=== PATIENT | male | born 1945 | race Caucasian/White ===

== ENCOUNTER → 2021-05-21 | Outpatient (CLI) | payer OTHER, BC ==
[~2021-05-21] MED LIST: ADULT ASPIRIN R81 MG PO; ADULT LOW DOSE81 MG PO; BREO ELLIPTA 11 EACH INH; COUMADIN 4 MG TA4 M1 PO; CRESTOR20 MG PO; CYMBALTA60 MG PO; FISH OIL 1,0001 EAC9 PO; FISHOIL PO; HYDROCODON-ACE1 EAC7 PO; LIPITOR 40 MG T40 M1 PO; LISINOPRIL20 MG PO; LOSARTAN POTAS100 MG PO; MAGNESIUM400 MG PO; MULTIVITAMINS PO; NORCO 10-325 T1 EACH; OXYCONTIN; STOOL SOFTENER100 MG PO; VITAMIN B-121000 MC2 PO; VITAMIN D325 MC5 PO; VOLTAREN ARTHRI20 GM TOP; ZINC30 M1 PO
[2021-05-21 11:40] LABS: URINE BILIRUBIN NEGATIVE (Negative); URINE BLOOD NEGATIVE (Negative); URINE CLARITY CLEAR; URINE COLOR YELLOW; URINE GLUCOSE-RANDOM* NEGATIVE (Negative); URINE KETONES NEGATIVE (Negative); URINE LEUKOCYTES-REFLEX NEGATIVE (Negative); URINE NITRITE-REFLEX NEGATIVE (Negative); URINE PROTEIN (DIPSTICK) NEGATIVE (Negative); URINE SPECIFIC GRAVITY <= 1.005 (1.005-1.035); URINE UROBILINOGEN 0.2 E.U./dl (0.2-1.0)
[2021-05-21 11:47] LABS: HEMATOCRIT 46.7 % (42.0-52.0); HEMOGLOBIN 15.8 gm/dL (14.0-18.0); MCH 31.1 pg (26.0-34.0); MCHC 33.9 g/dL (28.0-37.0); MCV 91.8 fL (80.0-100.0); RBC 5.09 mil/uL (4.50-6.00); RDW 13.1 % (10.5-14.5)
[2021-05-21 11:52] LABS: CALCIUM 9.2 mg/dL (8.5-10.1); CREATININE 0.9 mg/dL (0.7-1.3); POTASSIUM 4.4 mmol/L (3.5-5.1)
[2021-05-21 11:54] LABS: INR 0.94; PROTIME 10.3 Seconds (10.5-12.1)
--- NOTE | 2021-05-22 08:23 | EKG ---
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 SAAB : 1945 Requested By: Lex Hall Order Number: [id number] MD: Jean Pierre Lu Measurements Intervals [place] Rate: 72 P: 10 ME: 242 QRS: -42 QRSD: 119 T: 56 QT: 400 QTc: 438 Interpretive Statements Sinus rhythm Prolonged ME interval Incomplete RBBB and LAFB Compared to ECG 09/15/2010 12:50:24 Left anterior fascicular block now present Incomplete right bundle-branch block now present Right bundle-branch block now present Poor R-wave progression no longer present Electronically Signed On 05-22-2021 7:02:02 CDT by Jean Pierre Lu [email or web address] <ELECTRONICALLY SIGNED> By: Jean Pierre Lu MD, [facility] 05/22/21 0702 [id number] Jean Pierre Lu MD, [facility] /EPI
== END ==
LOC: PAC 10:29
PROVIDERS: ATTEND Orthopaedic Surgery
DX: Z01.812 Encounter for preprocedural laboratory examination (principal); Z01.810 Encounter for preprocedural cardiovascular examination; M17.11 Unilateral primary osteoarthritis, right knee; I45.2 Bifascicular block

== ENCOUNTER 2021-06-04 12:17 | Observation (INO) | payer OTHER, BC ==
[~2021-06-04] VITALS: Ht 182.9 cm; Wt 104.3 kg
--- NOTE | ~2021-06-04 | O ---
[facility] [place] [address] OPERATIVE REPORT Name: GENO BOWSER Room #: 438-P [facility] M..#: [id number] Admission: 06/04/21 Attend Phys: Lex Hall MD Discharge: Date of : 45 Report #: [id number] THIS REPORT FOR: cc: Jesus Haynes Timothy C. DO Abraham, Scott M. MD ~ DOC #: [id number] Lex Hall MD DATE OF SERVICE: 06/04/2021 PREOPERATIVE DIAGNOSIS: Right knee osteoarthritis. POSTOPERATIVE DIAGNOSIS: Right knee osteoarthritis. PROCEDURE: Right total knee arthroplasty using Navio robotic assistance. SURGEON: Lex Hall MD. OPERATING ROOM TECH: Raina Olson PA-C. INDICATION FOR OPERATING ROOM TECH: Throughout the case, extensive retraction, manipulation of the knee was required. This is supported by my security assistant. ANESTHESIA: LMA with adductor canal block. IMPLANTS: [employer]hew size 6 cobalt chrome Journey II BCS femur, size 7 tibia, size 9 polyethylene, size 38 patella. TOURNIQUET TIME: 51 minutes. ESTIMATED BLOOD LOSS: 25 mL COMPLICATIONS: None. SPECIMENS: None. CONDITION UPON LEAVING THE OR: Stable. INDICATIONS FOR PROCEDURE: The patient is a 75-year-old gentleman with severe right knee osteoarthritis. He had failed conservative measures for this and after discussion with him, he elected for right total knee arthroplasty. DESCRIPTION OF PROCEDURE: Risks, benefits, alternatives, complications were discussed in detail with the patient including, but not limited to risk of anesthesia, risk of damage to nerves, arteries, blood vessels, risk for infection, bleeding, risk for continued knee pain and need for reoperation. [address] [address] OPERATIVE REPORT Name: GENO BOWSER Miriam Room #: 438-P [facility] Camilo Junior#: [id number] Admission: 06/04/21 Attend Phys: Lex Hall MD Discharge: Date of : 45 Report #: [id number] Informed consent was obtained from the patient's right knee was appropriately marked in the preoperative holding area. IV Ancef was given for preoperative antibiotics. He was brought to the operating room and placed in the supine position on the operating table. LMA anesthesia was induced without complication. Tourniquet was placed on the right thigh. Right lower extremity was prepped and draped in normal sterile fashion. Timeout was performed properly identifying the patient and procedure as well as the instrumentation and implants. All in the operating room in agreement. Right lower extremity was exsanguinated, tourniquet was inflated. Tourniquet time was 51 minutes. Standard midline approach to the knee was made with 10 blade through the skin. Dissection was taken down sharply to the fascia and deep flaps were developed medially and laterally. Fresh 10 blade was used to make a medial parapatellar arthrotomy and the knee was inspected. There was severe lateral compartment osteoarthritis with moderate medial and patellofemoral compartment osteoarthritis. ACL and PCL were removed sharply. Reference pins were placed in the femur and the tibia. The knee was then digitally mapped using the Choozle robotic system. Intraoperative plan was made. We sized the size 6 femur, size 7 tibia and a 10 spacer. After acceptance of the intraoperative plan femoral cut was made with Navio bur. Distal femoral cutting block was pinned in place and chamfer cuts were made. Attention was turned to the tibia. Remainder of the menisci removed with Bovie cautery. Tibial resection guide was pinned in place using the Navio for placement and tibial resection was made. Flexion and extension gaps were checked and found to have good balance in flexion and extension both medially and laterally. Tibia sized, found to be a size 7. A size 7 tibial trial was placed, pinned and punch. A size 6 femoral trial was placed and the box cut was made. This was then trialed with a size 9 polyethylene, size 9 polyethylene demonstrated up to 1 mm laxity medially and laterally throughout range of motion of the knee. A 9 mm of bone was resected from the posterior surface of the patella and a size 38 patellar trial button was placed, knee was taken through range of motion, found to be stable, found to have good patellar tracking. Trial components were removed. Bone ends were thoroughly irrigated with normal saline. Final size 7 tibia, size 6 Journey II BCS cobalt chrome femur and a size 38 patella were cemented in place using standard cementation techniques. While the cement cured, a periarticular injection consisting of morphine, ropivacaine, epinephrine, Toradol was placed around the knee joint capsule. After the cement cured, tourniquet was deflated. Hemostasis was obtained with Bovie cautery. A final size 9 polyethylene was placed. A gram of vancomycin was placed deep in the joint. Fascia was closed with 0 Vicryl. Skin was closed with 2-0 Vicryl, skin staple and a MAUREEN dressing was applied. The patient tolerated this procedure well and went to recovery room under care of anesthesia postoperatively. Lex Hall MD [facility]/O [address] [address] OPERATIVE REPORT Name: GENO BOWSER Room #: 438-P [facility] Camilo Junior#: [id number] Admission: 06/04/21 Attend Phys: Lex Hall MD Discharge: Date of : 45 Report #: [id number] By: [id number] Lex Hall MD /nt
[2021-06-04 13:30] VITALS: BP 148/82
[2021-06-04 18:21] VITALS: BP 150/96
[2021-06-04 20:00] VITALS: BP 152/94
[2021-06-05 00:12] VITALS: BP 126/81
--- NOTE | 2021-06-05 01:15 | NUR ---
ASSESSED AT START OF SHIFT PT HAD SURGERY. ADMISSION DONE AND PT ORIENTED TO THE UNIT. BY BEDSIDE. RATES PAIN ON RT KNEE 6/10 HYDROCODONE GIVEN. IV INTACT AND FLUIDS STARTED. POLAR PACK, SCD'S AND TEDHOSE IN PLACE. FALL PREC IN PLACE, CALL LIGHT AT REACH. NO FURTHER SIGNS OF DIS COMFORT WILL CONT TO MONITOR
[2021-06-05 07:52] VITALS: BP 114/66
[2021-06-05 12:21] VITALS: BP 114/66
--- NOTE | 2021-06-05 12:54 | NUR ---
ASSESSMENT: CM REVIEWED CHART AND MET WITH PATIENT AND HIS AT THE BEDSIDE. PT IS ALERT AND ORIENTED X4. PT IS S/P RIGHT KNEE ARTHOPLASTY. PT REPORTS LIVING IN A HOME WITH HIS THAT HAS ABOUT 9 STEPS WITH HANDRAILS. PT REPORTS NORMALLY BEING FULLY INDEPENDENT WITH ADLS AND AMBULATION BUT DOES HAVE A WALKER AT HOME TO USE. PT REPORTS THAT HE HAS OUTPATIENT THERAPY ARRANGED AT [facility] IN [place] TO START TOMORROW. PT WORKED WITH PHYSICAL THERAPY AND DID WELL AND SAFE FOR HOME TODAY. PT DENIES AND FURTHER NEEDS FROM CM.
== END 2021-06-05 14:05 | disposition home or self-care (01) ==
LOC: OR → 4S 17:50 → OR 18:47 → 4S 18:48
PROVIDERS: ADMIT Orthopaedic Surgery; ATTEND Orthopaedic Surgery
DX: M17.11 Unilateral primary osteoarthritis, right knee (principal); E78.5 Hyperlipidemia, unspecified; Z79.899 Other long term (current) drug therapy
CPT/HCPCS: 50010; 50101; 50415; 50954; 51130; 51225; 51320; 51412; 53000; 53078; 56527; 56528; 57095; 57103; 57110; 57127; 57180; 58239; 62110; 62900; 64043; 65060; 70005